=== PATIENT | female | born 2005 | race Caucasian/White ===

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

== ENCOUNTER 2024-03-04 21:46 | Emergency (ER) | payer MEDICAID, SELFPAY ==
[2024-03-04 21:50] VITALS: BP 105/66; PULSE 114; RESP 16; TEMP 37; O2SAT 95
[2024-03-04] MEDS: sodium chloride 0.9% 1,000 ML 999 ML IV (22:46)
[2024-03-04] MEDS: ondansetron 2 mg/ML SDV 2 mL 4 MG IVP (22:47)
[2024-03-04 22:49] VITALS: BP 108/70; PULSE 102; RESP 16; O2SAT 96
[2024-03-04 22:50] LABS: Basophils % 0.2 %; Hematocrit 35.8 % (36-47); Lymphocytes # 0.4 10^3/uL (1.5-6.5); Lymphocytes % 3.7 %; Mean Corpuscular HGB Conc 30.4 g/dL (30-55); Mean Corpuscular Hemoglobin 22.9 pg (27-33); Mean Corpuscular Volume 75.4 fl (85-98); Mean Platelet Volume 10.6 fL (7.4-10.4); Monocytes # 0.4 10^3/uL (0.2-0.9); Neutrophils # 9.55 10^3/uL (1.8-8.0); Neutrophils % 91.7 %; Nucleated Red Blood Cells % 0 %; Platelet Count 272 10^3/cmm (157-399); Red Blood Count 4.75 10^6/uL (3.85-5.65); Red Cell Distribution Width 17.2 % (12.1-15.1); White Blood Count 10.41 10^3/uL (4.5-13.0)
--- NOTE | 2024-03-04 23:15 | ED_ITS ---
HPI - Nausea/Vomiting/Diarrhea 2 General: Chief complaint: Nausea/Vomiting/Diarrhea Stated complaint: N/V dizzy sharp pain in L shoulder Time Seen by Provider: 03/04/24 22:34 History of Present Illness: Patient presents to the ER with complaints of nausea vomiting. This been going on all day long. Patient's not been able to eat any food today. She did feel normal and eat just fine yesterday. Patient's not been around any sick contacts. She does not have any chronic GI issues. She denies abdominal pain constipation diarrhea pain burning frequency with urination. Patient does state every once while she has some sharp stabbing pains in her left shoulder area. Review of Systems 2 General: Reports: 10 or more systems reviewed and unremarkable except in HPI and below Physical Exam 2 Const: COMMON NORMALS: no acute distress, average body habitus, patient oriented x3, no limitations, healthy appearing, alert and well nourished HENMT: COMMON NORMALS: normocephalic, atraumatic, hearing grossly normal bilaterally, external ears normal, Normal external nose present, moist oral mucous membranes and oropharynx normal HEAD & SCALP: normocephalic and atraumatic NOSE: Normal external nose present EXTERNAL EAR: Yes external ears normal Neck/C-Spine: COMMON NORMALS: no JVD Chest: COMMONS NORMALS: normal inspection of the chest and normal palpation of entire chest wall Resp: COMMON NORMALS: normal respiratory effort, No retractions, No use of accessory muscles and clear to auscultation bilaterally AUSCULTATION: clear to auscultation bilaterally Cardio: COMMON NORMALS: no JVD, regular rate, regular rhythm, S1 normal heart sound present, S2 normal heart sound present, No gallops present (Cardio), No clicks present (Cardio), No murmurs present (Cardio) and No rub (Cardio) R ATE: regular rate RHYTHM: regular rhythm HEART SOUNDS: S1 normal heart sound present and S2 normal heart sound present GI: COMMON NORMALS: Normal to inspection, nondistended, normoactive bowel sounds present, Soft to palpation, non-tender, No hepatosplenomegaly present and no masses PALPATION: Yes Soft to palpation and Yes No hepatosplenomegaly present Neuro: COMMON NORMALS: patient oriented x3 SENSORIUM/ORIENTATION: Yes alert Course 2 Vital Signs: Vital signs: Vital Signs Temperature 98.6 F 03/04/24 21:50 Pulse Rate 96 03/05/24 01:03 Respiratory Rate 16 03/05/24 01:03 Blood Pressure 108/47 03/05/24 01:03 Pulse Oximetry 96 03/05/24 01:03 Oxygen Delivery Me thod Room Air 03/04/24 21:50 MDM - Nausea/Vomiting/Diarrhea Medical Decision Making CBC CMP urinalysis urine hCG was obtained all of which was fairly benign urine did show 3+ ketones, patient was given 1 L normal saline, Zofran 4 mg, Reglan 10 mg, this did help her symptoms patient says she was feeling better and is ready to leave. Patient be discharged with a prescription for Zofran. Differential Diagnosis Likely gastroenteritis; Unlikely traveler's diarrhea, food poisoning, clostridium difficile infection, drug-induced nausea and vomiting or dehydration Medical Records I reviewed the patient's medical records. Lab Data I reviewed the patient's lab results. 03/04/24 22:42 03/04/24 22:42 Laboratory Results WBC 10.41 10^3/uL (4.5-13.0) 03/04/24 22:42 RBC 4.75 10^6/uL (3.85-5.65) 03/04/24 22:42 Hgb 10.90 g/dL (12.4-14.8) L 03/04/24 22:42 Hct 35.8 % (36-47) L 03/04/24 22:42 MCV 75.4 fl (85-98) L 03/04/24 22:42 MCH 22.9 pg (27-33) L 03/04/24 22:42 MCHC 30.4 g/dL (30-55) 03/04/24 22:42 RDW 17.2 % (12.1-15.1) H 03/04/24 22:42 Plt Count 272 10^3/cmm (157-399) 03/04/24 22:42 MPV 10.6 fL (7.4-10.4) H 03/04/24 22:42 Neut % (Auto) 91.7 % 03/04/24 22:42 Lymph % (Auto) 3.7 % 03/04/24 22:42 Mcmullen % (Auto) 4.0 % 03/04/24 22:42 Eos % (Auto) 0.0 % 03/04/24 22:42 Baso % (Auto) 0.2 % 03/04/24 22:42 Neut # (Auto) 9.55 10^3/uL (1.8-8.0) H 03/04/24 22:42 Lymph # (Auto) 0.4 10^3/uL (1.5-6.5) L 03/04/24 22:42 Mcmullen # (Auto) 0.4 10^3/uL (0.2-0.9) 03/04/24 22:42 Eos # (Auto) 0.0 10^3/uL (0.0-0.8) 03/04/24 22:42 Baso # (Auto) 0.0 10^3/uL (0.0-0.1) 03/04/24 22:42 Nucleated RBC % (auto) 0 % 03/04/24 22:42 Nucleated RBCs # 0.0 /100WBC 03/04/24 22:42 Sodium 134 mmol/L (136-145) L 03/04/24 22:42 Potassium 3.7 mmol/L (3.5-5.1) 03/04/24 22:42 Chloride 101 mmol/L (98-107) 03/04/24 22:42 Carbon Dioxide 21 mmol/L (22-29) L 03/04/24 22:42 Anion Gap 15.7 (5-19) 03/04/24 22:42 BUN 13 mg/dL (6-20) 03/04/24 22:42 Creatinine 0.6 mg/dL (0.5-0.9) 03/04/24 22:42 GFR Calculation 128.8 mL/min (90-130) 03/04/24 22:42 Glucose 101 mg/dL (65-115) 03/04/24 22:42 Calculated Osmolality 278 mOsm/kg (285-295) L 03/04/24 22:42 Calcium 9.2 mg/dL (8.5-10.5) 03/04/24 22:42 Magnesium 1.8 mg/dL (1.7-2.2) 03/04/24 22:42 Total Bilirubin 0.6 mg/dL (0.15-1.2) 03/04/24 22:42 AST 20 U/L (0-32) 03/04/24 22:42 ALT 16 U/L (0-33) 03/04/24 22:42 Alkaline Phosphatase 56 U/L (35-105) 03/04/24 22:42 Total Protein 7.3 g/dL (6.6-8.7) 03/04/24 22:42 Albumin 4.7 g/dL (3.5-5.2) 03/04/24 22:42 Globulin 2.6 g/dL (1.3-4.6) 03/04/24 22:42 HCG, Qual Negative (Negative) 03/04/24 23:30 Urine Color Yellow (Yellow) 03/04/24 23:30 Urine Appearance Slightly cloudy (CLEAR) 03/04/24 23:30 Urine pH 5 (5-7) 03/04/24 23:30 Ur Specific [place] 1.025 (1.005-1.030) 03/04/24 23:30 Urine Protein Neg (Negative) 03/04/24 23:30 Urine Glucose (UA) Norm (Normal) 03/04/24 23:30 Urine Ketones 3+ (Negative) H 03/04/24 23:30 Urine Blood Neg (Negative) 03/04/24 23:30 Urine Nitrate Negative (Negative) 03/04/24 23:30 Urine Bilirubin 1+ (Negative) H 03/04/24 23:30 Urine Urobilinogen Neg mg/dL (Negative) 03/04/24 23:30 Ur Leukocyte Esterase Negative (Negative) 03/04/24 23:30 Urine RBC 0-4 /hpf (0-2) H 03/04/24 23:30 Urine WBC 5-10 /hpf (0-5) H 03/04/24 23:30 Ur Squamous Epith Cells 25-40 /hpf (0-5) H 03/04/24 23:30 Ur Transition Epith Cell 15-25 /hpf 03/04/24 23:30 Amorphous Sediment Not Reportable 03/04/24 23:30 Urine Bacteria 1+ /hpf (NONE) H 03/04/24 23:30 Urine Mucus 2+ /hpf 03/04/24 23:30 All radiology interpretation(s) finalized by discharge Discharge Plan Discharge Patient Disposition: Home Clinical Impression: Gastroenteritis Condition: Stable Prescriptions: New ondansetron HCl 4 mg tablet 4 mg PO Q8H PRN (Reason: nausea and vomiting) Qty: 14 0RF No Action ferrous sulfate 325 mg (65 mg iron) tablet 325 mg PO DAILY Discharge Orders: Discharge ED (Routine); Ordered 03/05/24 Ordered By: Mikel Ventura Referrals: Ev Hudson, MARKETING SUPPORT SPECIALIST [Primary Care Provider] - 1 week Patient Instructions: Acute Nausea and Vomiting (ED) Activity Restrictions/Additional Instructions: Your workup in ER did not show any acute cause of your symptomatology. Your lab work was unremarkable. You are given Zofran and Reglan and your IV for your nausea as well as 1 L normal saline for fluid replacement. A prescription for Zofran will be sent to your pharmacy to use as needed for the next several days. Please follow-up with your family practice physician within the next 7 days for further evaluation and treatment as needed. Thank you for choosing [facility] for your healthcare needs today. Please realize that you were seen in the emergency department and that we are providing you with an emergency medical screening exam and this may not be a complete and all exclusive of all testing and/or medical workup we may need to determine your element or severity of your illness. It is very important that you follow-up as instructed with your primary care provider or specialist for the additional evaluation and to discuss your medical treatment plan. You may return to the emergency department should you have concerns or if your condition changes or worsens in any way. Coding Level of Care Code ED Lap Machine Operator for [employer] [facility]
[2024-03-04 23:23] VITALS: BP 89/47; PULSE 98; RESP 16; O2SAT 100
[2024-03-04 23:25] LABS: Alanine Aminotransferase 16 U/L (0-33); Albumin Level 4.7 g/dL (3.5-5.2); Alkaline Phosphatase 56 U/L (35-105); Anion Gap 15.7 (5-19); Aspartate Amino Transferase 20 U/L (0-32); Blood Urea Nitrogen 13 mg/dL (6-20); Calcium 9.2 mg/dL (8.5-10.5); Carbon Dioxide 21 mmol/L (22-29); Chloride 101 mmol/L (98-107); Globulin 2.6 g/dL (1.3-4.6); Glomerular Filtration Rate 128.8 mL/min (90-130); Glucose 101 mg/dL (65-115); Magnesium 1.8 mg/dL (1.7-2.2); Osmolality Calculated 278 mOsm/kg (285-295); Potassium 3.7 mmol/L (3.5-5.1); Sodium 134 mmol/L (136-145); Total Bilirubin 0.6 mg/dL (0.15-1.2); Total Protein 7.3 g/dL (6.6-8.7)
[2024-03-04] MEDS: metoclopramide 5 mg/mL SDV 2 mL 10 MG IVP (23:33)
[2024-03-04 23:37] LABS: HCG Qualitative Urine. Negative (Negative)
[2024-03-04 23:49] VITALS: BP 88/47; PULSE 109; RESP 16; O2SAT 98
[2024-03-04 23:58] LABS: Add Urine Microscopic? YES; Bilirubin Urine 1+ (Negative); Blood Urine Neg (Negative); Glucose Urine UA Norm (Normal); Ketones Urine 3+ (Negative); Leukocyte Esterase Urine Negative (Negative); Nitrate Urine Negative (Negative); Protein Urine Neg (Negative); Specific Gravity, Urine 1.025 (1.005-1.030); Urine Appearance Slightly Cloudy (CLEAR); Urine Color Yellow (Yellow); Urobilinogen Urine Neg (Negative); pH Urine 5 (5-7)
[2024-03-05] LABS: Add Urine Culture? No; Bacteria Urine 1+ /hpf; Mucus Urine 2+ /hpf; RBC Urine 0-4 /hpf (0-2); Squamous Epithelial Cell Urine 25-40 /hpf (0-5); Transitional Epi Cells Urine 15-25 /hpf
[2024-03-05 00:20] VITALS: BP 84/42; PULSE 118; RESP 16; O2SAT 97
[2024-03-05 01:03] VITALS: BP 108/47; PULSE 96; RESP 16; O2SAT 96
== END 2024-03-05 01:15 | disposition home or self-care (01) ==
PROVIDERS: Emergency Provider Emergency Medicine; PCP Nurse Practitioner Family
DX: K52.9 Noninfective gastroenteritis and colitis, unspecified (principal)
CPT/HCPCS: 80053; 81001; 81003; 81025; 83735; 85025; 96361; 96374; 96375; 99284; J2405; J2765; J7030